=== PATIENT | female | born 1965 | race African-American/Black ===

== ENCOUNTER 2019-07-01 21:25 | Emergency (ER) | payer MEDICAID ==
[~2019-07-01] VITALS: Ht 167.6 cm; Wt 99.8 kg
[~2019-07-01 21:25] MED LIST: ASPI-404 PO; LISI10TA6 PO; PREG300C12 PO
[2019-07-02 01:55] VITALS: BP 133/50
== END 2019-07-02 02:01 | disposition home or self-care (01) ==
LOC: ER 21:29
DX: G62.9 Polyneuropathy, unspecified (principal); I10 Essential (primary) hypertension; Z79.899 Other long term (current) drug therapy
CPT/HCPCS: 71045; 93971